=== PATIENT | male | born 1985 | race Caucasian/White ===

== ENCOUNTER 2024-07-07 16:58 | Emergency (ER) | payer OTHER, SELFPAY ==
--- NOTE | ~2024-07-07 | XR_ITS ---
EXAM: XR foot RT 2V DATE: 07/07/2024 17:48 HISTORY: top of foot stepped on this afternoon . COMPARISON: None available. FINDINGS: Normal mineralization. No fracture or dislocation. No lytic or blastic lesion. Joint space s are maintained. No erosion or periosteal change. Soft tissues within normal limits. IMPRESSION: No acute osseous finding in the right foot. Reviewed, dictated and finalized at location K.
[2024-07-07 17:00] VITALS: BP 130/95; PULSE 116; RESP 16; TEMP 37.1; O2SAT 99
--- NOTE | 2024-07-07 18:06 | ED.GENADULT ---
HPI - General Adult General Chief complaint: Extremity Injury, Lower Stated complaint: Pt states he thinks he broke his R foot Time Seen by Provider: 07/07/24 17:31 Source: patient Mode of arrival: ambulatory Limitations: no limitations History of Present Illness HPI narrative: this is a 38-year-old male who presents to the ED for chief complaint of right foot injury that occurred today while playing basketball. Patient states that he was wearing sandals and had someone land on top of his foot. States that his foot kind of twisted as he went to the ground. He reports pain mainly to the dorsum of the foot. Denies any further sites of pain or injury. Denies numbness or weakness. Related Data Allergies Allergy/AdvReac Type Severity Reaction Status Date / Time No Known Allergies Allergy Verified 07/07/24 16:59 Review of Systems Review of Systems: All systems as dictated in HPI Exam Narrative: GENERAL: Well-appearing, well-nourished, and in no acute distress. HEAD: Normocephalic, atraumatic. EYES: PERRLA and EOMI. ENT: Nares clear, no rhinorrhea or epistaxis. Mucous membranes moist. Oropharynx without tonsillar hypertrophy exudate or other lesions. NECK: Supple. No adenopathy or masses. CHEST: No respiratory distress. Clear to auscultation. No wheezes rales or rhonchi HEART: Regular rate and rhythm. No murmur heard. Normal peripheral pulses. ABDOMEN: Soft, nontender, nondistended, normal active bowel sounds. MSK: LLE: Benign RLE: Mild tenderness to the dorsum of the right foot. No tenderness over the lateral foot or over the ankle. No deformity. Neurovascular intact distally SKIN: Warm, dry, no rash. No ecchymosis NEURO: Alert and oriented x4. No focal deficits. PSYCH: Normal mood and affect. Course Vital Signs Vital signs: Vital Signs Temperature 98.8 F 07/07/24 17:00 Pulse Rate 116 H 07/07/24 17:00 Respiratory Rate 16 07/07/24 17:00 Blood Pressure 130/95 H 07/07/24 17:00 Pulse Oximetry 99 07/07/24 17:00 Oxygen Delivery Room Air 07/07/24 17:00 Temperature 98.8 F 07/07/24 17:00 Pulse Rate 116 H 07/07/24 17:00 Respiratory Rate 16 07/07/24 17:00 Blood Pressure 130/95 H 07/07/24 17:00 Pulse Oximetry 99 07/07/24 17:00 Oxygen Delivery Room Air 07/07/24 17:00 Medical Decision Making [facility] Narrative Medical decision making narrative: this is a 38-year-old male who presents to the ED with chief complaint of right foot injury while playing basketball today. Vitals are normal. Exam is overall benign. X-rays of the right foot show no acute osseous findings. Presentation consistent with contusion versus sprain. Patient was given Richard wrap and crutches. Pt will be discharged in stable condition. Return precautions given and supportive measures discussed. Pt is understanding and agreeable with plan for discharge and follow-up with PCP. Vital Signs Vital Signs: Vital Signs Temperature 98.8 F 07/07/24 17:00 Pulse Rate 116 H 07/07/24 17:00 Respiratory Rate 16 07/07/24 17:00 Blood Pressure 130/95 H 07/07/24 17:00 Pulse Oximetry 99 07/07/24 17:00 Oxygen Delivery Room Air 07/07/24 17:00 Temperature 98.8 F 07/07/24 17:00 Pulse Rate 116 H 07/07/24 17:00 Respiratory Rate 16 07/07/24 17:00 Blood Pressure 130/95 H 07/07/24 17:00 Pulse Oximetry 99 07/07/24 17:00 Oxygen Delivery Room Air 07/07/24 17:00 Discharge Plan Discharge Clinical Impression: Foot sprain Patient Disposition: Home, Self-Care Condition: Stable Instructions: Antibiotic Form Additional Instructions: exam and imaging today are reassuring overall. Please take ibuprofen every 6 hours as needed for pain. If you have any new or worsening symptoms please return to the ER for further evaluation. Follow-up/Referrals: UNKNOWN,DOCTOR [Non-Staff] - Time of Disposition: 18:09
[2024-07-07] MEDS: IBUPROFEN 600 MG TABLET PO (18:24)
== END 2024-07-07 18:30 | disposition home or self-care (01) ==
PROVIDERS: Emergency Provider Physician Assistant
DX: S93.601A Unspecified sprain of right foot, initial encounter (principal); W51.XXXA Accidental striking against or bumped into by another person, initial encounter
CPT/HCPCS: 73620; 99283; A9270